=== PATIENT | male | born 1940 | race Caucasian/White ===

== ENCOUNTER 2019-05-12 14:50 | Observation (INO) ==
[2019-05-12] MEDS ORDERED: Aspirin 81 MG TAB.CHEW PO ONE (15:20)
[2019-05-12 15:22] LABS: Basophils # 0.1 K/mcL (0.0-0.2); Basophils % 0.9 %; Eosinophils # 0.1 K/mcL (0.0-0.6); Eosinophils % 1.8 %; Hematocrit 36.2 % (37.5-50.1); Immature Granulocytes % 0.4 % (0-4); Lymphocytes # 1.9 K/mcL (0.6-4.6); Lymphocytes % 24.7 %; Mean Corpuscular HGB Conc 33.1 g/dL (31.6-35.5); Mean Corpuscular Volume 93.5 fL (83.0-100.0); Mean Platelet Volume 10.3 fL (9.4-12.4); Monocytes # 0.7 K/mcL (0.0-1.3); Monocytes % 8.6 %; Neutrophils # 4.9 K/mcL (1.6-8.9); Platelet Count 195 K/mcL (140-400); Red Blood Count 3.87 M/mcL (4.19-5.50); Red Cell Distribution Width 14.4 % (11.5-14.5); Segmented Neutrophils % 63.6 %; White Blood Count 7.8 K/mcL (4.3-11.1)
[2019-05-12 15:33] LABS: Prothrombin Time 11.9 Seconds (9.4-12.1)
[2019-05-12 15:35] LABS: Activated Partial Thrombo Time 32.8 Seconds (26.0-36.0)
--- NOTE | 2019-05-12 15:40 | Emergency Department Note ---
Disposition Clinical Impression: Chest pain Qualifiers: Chest pain type: unspecified Qualified Code(s): R07.9 - Chest pain, unspecified CAD (coronary artery disease) Qualifiers: Coronary Disease-Associated Artery/Lesion type: unspecified vessel or lesion type [place] vs. 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 insulin use: unspecified fci insulin use status Diabetes mellitus complication status: with other specified complication Qualified Code(s): E11.69 - Type 2 diabetes mellitus with other specified complication Disposition: Admitted As Inpatient Time of Disposition: 16:43 Chest Pain HPI - General Chief Complaint: ED Chest Pain Stated Complaint: Chest pain Time Seen by Provider: 05/12/19 15:00 Source: patient Mode of arrival: ambulatory Limitations: no limitations Vital Signs Reviewed: Yes Nursing Notes Reviewed: Yes - History of Present Illness HPI Narrative: 79M with PMHx of DM, CAD with history of cardiac bypass, and HTN presents emergency department with complaints of intermittent chest pain that started at midnight. Patient states that he has had approximately 6 episodes of chest pain that have each lasted about 10 minutes since midnight. Patient states he had 3 episodes that woke him from sleep, as well as noted 3 episodes that happened while he was seated in his chair. He states he did not take any medications to make the chest pain go away, that it just went away on its own. He describes the pain as a substernal pressure without radiation anywhere. He says it is similar to the pain that he had prior to his cardiac bypass. He denies recent illness, fever, chills, shortness of breath, abdominal pain, nausea and vomiting. Severity scale (1-10): 1 - Related Data Home Medications Medication Instructions Recorded Confirmed Allopurinol [Zyloprim] 300 mg PO DAILY 07/24/18 05/12/19 Lisinopril 2.5 mg PO DAILY 07/24/18 05/12/19 Metoprolol [Lopressor] 25 mg PO BID 07/24/18 05/12/19 Torsemide [Demadex] 20 mg PO DAILY 07/24/18 05/12/19 amLODIPine [Norvasc] 5 mg PO DAILY 07/24/18 05/12/19 metFORMIN [Glucophage] 500 mg PO BIDWM 07/24/18 05/12/19 Aspirin [Lo-Dose Aspirin EC] 81 mg PO DAILY 05/12/19 05/12/19 Insulin Glargine,Hum.rec.anlog 18 unit SQ HS 05/12/19 05/12/19 [Basaglar Meghanaikpen U-100] Pravastatin Sodium [Pravachol] 80 mg PO DAILY 05/12/19 05/12/19 Allergies Allergy/AdvReac Type Severity Reaction Status Date / Time No Known Allergies Allergy Verified 07/24/18 14:24 All systems ED: reviewed and negative except as stated. Review of Systems: As Per HPI Constitutional: Denies: fever, chills, weakness Cardiovascular: Reports: chest pain. Denies: palpitations, dyspnea on exertion Respiratory: Denies: cough, dyspnea, wheezes Gastrointestinal: Denies: abdominal pain, nausea, vomiting Musculoskeletal: Denies: back pain, neck pain Integumentary: Denies: rash Neurological: Denies: headache Endocrine: Reports: fatigue Chest Pain PMH - Past Medical History Medical history: Reports: diabetes, hypertension Psychiatric history: Reports: no psych history - Social History Smoking Status: Never smoker Alcohol use: Reports: none Drug use: Reports: none Physical Exam - General Limitations: no limitations General appearance: alert, in no apparent distress - Head Head exam: atraumatic, normocephalic - Eye Eye exam: Present: normal appearance, EOMI - Chest Chest inspection: Present: normal inspection. Absent: tenderness, rash - Respiratory Respiratory exam: Present: normal lung sounds bilaterally. Absent: wheezes - Cardiovascular Cardiovascular exam: Present: regular rate, normal rhythm - Abdominal Exam Abdominal exam: Present: soft, Non-Tender. Absent: distention, guarding, rebound, rigidity - Extremities Exam Extremities exam: Present: normal inspection. Absent: tenderness, pedal edema - Neurological Exam Neurological exam: Present: alert, oriented X3 - Psychiatric Psychiatric exam: Present: normal affect, normal mood - Skin Skin exam: Present: warm, dry, intact Course Vital Signs Temperature 98.0 F 05/12/19 14:53 Pulse Rate 67 05/12/19 14:53 Respiratory Rate 18 05/12/19 14:53 Blood Pressure 135/71 05/12/19 14:53 O2 Sat by Pulse Oximetry 100 05/12/19 14:53 Temperature 98.0 F 05/12/19 14:53 Pulse Rate 64 05/12/19 15:34 Respiratory Rate 16 05/12/19 15:34 Blood Pressure 119/65 05/12/19 15:41 O2 Sat by Pulse Oximetry 100 05/12/19 15:34 Oxygen Delivery Oxygen Delivery Room Air Chest Pain - MDM Narrative Medical decision making narrative: Patient presents with signs and symptoms concerning for unstable angina. We will pursue a cardiac workup on the patient and plan on admission for further cardiac workup. Patient will be given aspirin, but as he is having no chest pain we will not order nitroglycerin at this time. 1604 - pts labs are at the patients baseline. CXR shows calcific aortic disease without any acute abnormalities. Pt is still denying chest pain. Hospitalist will be paged for admission for further cardiac workup. 1642 - pt has been accepted to the hospital by Dr. Larios - Medical Records Medical records reviewed: Yes I reviewed the patient's medical records. - Lab Data Lab results reviewed: Yes I reviewed the patient's lab results. Result diagrams: 05/12/19 15:05 05/12/19 15:05 Lab Results 05/12/19 05/12/19 05/12/19 Range/Units 15:05 15:05 15:05 WBC 7.8 (4.3-11.1) K/mcL RBC 3.87 L (4.19-5.50) M/mcL Hgb 12.0 L (12.9-16.9) g/dL Hct 36.2 L (37.5-50.1) % MCV 93.5 (83.0-100.0) fL MCH 31.0 (28.0-33.3) pg MCHC 33.1 (31.6-35.5) g/dL RDW 14.4 (11.5-14.5) % Plt Count 195 (140-400) K/mcL MPV 10.3 (9.4-12.4) fL Immature Gran % 0.4 (0-4) % Seg Neutrophils % 63.6 % Lymphocytes % 24.7 % Monocytes % 8.6 % Eosinophils % 1.8 % Basophils % 0.9 % Neutrophils # 4.9 (1.6-8.9) K/mcL Lymphocytes # 1.9 (0.6-4.6) K/mcL Monocytes # 0.7 (0.0-1.3) K/mcL Eosinophils # 0.1 (0.0-0.6) K/mcL Basophils # 0.1 (0.0-0.2) K/mcL PT 11.9 (9.4-12.1) Seconds INR 1.0 APTT 32.8 (26.0-36.0) Seconds Sodium 138 (136-145) mEq/L Potassium 4.5 (3.5-5.1) mEq/L Chloride 101 (98-107) mEq/L Carbon Dioxide 32 H (23-29) mEq/L BUN 24 H (8-23) mg/dL Creatinine 1.36 H (0.70-1.30) mg/dL Est GFR ( Amer) > 60 (> 60) Est GFR (Non-Af Amer) 51 L (> 60) BUN/Creatinine Ratio 18 (6-26) Glucose 177 H (70-105) mg/dL Calculated Osmolality 294 (280-300) Calcium 10.0 (8.6-10.3) mg/dL Magnesium 2.0 (1.6-2.6) mg/dL Troponin I < 0.03 (< 0.04) ng/mL - Radiology Data Radiology results reviewed: Yes I reviewed the patient's radiology results. - EKG Data EKG attestation: Yes I reviewed and interpreted this EKG. EKG results narrative: EKG obtained at Heart rate 64 bpm, [place] interval 189, QRS duration 82, QT 341, QTC 351 Sinus rhythm without any ST segment elevations or depressions. No acute T-wave abnormalities. No significant changes when compared to previous EKG dated 12/13/2013. Heart Score - Score History: Slightly Suspicious EKG: Normal Age: Greater than 65 Risk Factors: Equal/Greater than 3 risk factor or history of atherosclerotic disease Troponin: Less than normal limit HEART Score Total: 4 Attestation Statement - Attestation Attestation: I, Mk Tillman, examined this patient and my medical decision-making was reviewed with the ROUTE RELIEF DRIVER/PA/Advanced Practice Nurse/Resident Physician. I agree with the documented findings, disposition and treatment plan as described except to the extent set forth below. 79-year-old male presents emergency Department with concerns of chest pain. Patient reports pain is described as a aching pressure in his central chest that does not radiate. Patient denies associated syncopal event. He states it does feel similar to his previous pain prior to his cardiac bypass. Patient denies recent fever, chills, vomiting, syncope, abdominal pain, diarrhea, hematochezia, melena. He does state that he does not have significantly worsened shortness of breath compared to the past. Initial troponin negative.I reviewed the EKG with the resident and agree with the interpretation. Patient will be admitted to the hospitalist for further care and evaluation of his chest pain
[2019-05-12 15:41] LABS: BUN/Creatinine Ratio 18 (6-26); Blood Urea Nitrogen 24 mg/dL (8-23); Carbon Dioxide 32 mEq/L (23-29); Chloride 101 mEq/L (98-107); Glucose 177 mg/dL (70-105); Osmolality,Calculated 294 (280-300); Potassium 4.5 mEq/L (3.5-5.1); Sodium 138 mEq/L (136-145); Troponin I < 0.03 ng/mL (< 0.04); eGFR For African Americans > 60 (> 60); eGFR For Non-African Americans 51 (> 60)
[2019-05-12] MEDS ORDERED: Naloxone 0.4 MG/ML INJ IVP PRN (17:38)
--- NOTE | 2019-05-12 17:42 | Internal Med History&Physical ---
Date of Encounter: 05/12/19 Time of Encounter: 17:37 Internal Medicine - H&P: HPI Chief complaint: chest pain Admitted From: Home Plans for Post Hospital Care: Home History of present illness: Mr. Torrez is a 79 year old male past medical history of diabetes, CKD3, hypertension, gout, coronary artery disease status post bypass about 16 years ago came in with complain of chest pain starting yesterday night. Patient re ported multiple episodes of chest pain lasting about 10 minutes. Initially he was woke woken up by chest pain from sleep yesterday. He did not do anything to make it better and the chest pain subsided itself. It was about 6/10 in intensity and nonradiating. Not associated nausea vomiting sweating lightheadedness or palpitation. He reported stress test or LHC was done at [facility] about 8-10 years ago. Has not followed up with cardiology since last 5-6 years. Denied any abdominal pain but has chronic back pain. Denied any cough or shortness of breath. Denies any leg swelling. Patient was evaluated in the ER and admission was requested for ACS workup. He received 325 aspirin. During my interview patient was without any chest pain. Chest x-ray was without any acute pulmonary disease, showed calcified atherosclerotic aorta. Patient denied any difficulty breathing. Past Med Surg Social Fam HX - Past Medical History Medical history: diabetes, hypertension Psychiatric history: no psych history - Past Surgical History Additional surgical history: rectal fistula,. cholecystectomy. Rt knee surgery - Social History Smoking Status: Never smoker Smokeless Tobacco Status: No Alcohol use: none Drug use: none - Additional Family History Additional family history: Denies any history of cancer in family Internal Medicine - H&P: Meds Allopurinol [Zyloprim] 300 mg PO DAILY 07/24/18 [History] Lisinopril 2.5 mg PO DAILY 07/24/18 [History] Metoprolol [Lopressor] 25 mg PO BID 07/24/18 [History] Torsemide [Demadex] 20 mg PO DAILY 07/24/18 [History] amLODIPine [Norvasc] 5 mg PO DAILY 07/24/18 [History] metFORMIN [Glucophage] 500 mg PO BIDWM 07/24/18 [History] Aspirin [Lo-Dose Aspirin EC] 81 mg PO DAILY 05/12/19 [History] Insulin Glargine,Hum.rec.anlog [Basaglar Kwikpen U-100] 18 unit SQ HS 05/12/19 [History] Pravastatin Sodium [Pravachol] 80 mg PO DAILY 05/12/19 [History] Allergy/AdvReac Type Severity Reaction Status Date / Time No Known Allergies Allergy Verified 07/24/18 14:24 All Systems PM: A 10-system review of systems was performed and is negative for pertinent findings except as documented above in the HPI. - Constitutional Vitals: Temp Pulse Resp BP Pulse Ox 98.0 F 63 16 117/59 100 05/12/19 14:53 05/12/19 17:09 05/12/19 17:09 05/12/19 17:09 05/12/19 17:09 Exam: Constitutional: Vitals as noted. Conversant. No Apparent Distress. Well groomed. No obvious deformities. Eyes : Sclera white, conjunctiva clear, no lid lag, PEARLA. ENT : Grossly normal hearing. Oropharyngeal exam unremarkable. Moist mucus mem branes. No JVD, no cervical lymphadenopathy. no thyromegaly or mass. Respiratory : Clear to auscultation bilaterally. No accessory muscle use, rales, rhonchi or wheezes Cardiovascular : RRR, +S1, +S2. no murmur, gallop, rubs. No chest wall tenderness GI/Abdominal : Soft, Non-tender, Non-distended, normal bowel sounds, soft, no peritoneal signs. no orgenomegaly or mass appreciated. no hernia. Musculoskeletal: no deformity noted. no edema or cyanosis. warm extremities, pulses palpable and symmetrical in UE/LE. no calf tenderness. Neurological: AO X3, CN II-XII grossly intact, grossly normal motor and sensory exam. Skin: No skin rash, lesions or ulcers noted. Pych: Good insight and judgement. Intact memory. AOx3. Internal Med - H&P Results - Labs CBC & Chem 7: 05/12/19 15:05 05/12/19 15:05 Labs: Short CBC 05/12/19 Range/Units 15:05 WBC 7.8 (4.3-11.1) K/mcL Hgb 12.0 L (12.9-16.9) g/dL Hct 36.2 L (37.5-50.1) % Plt Count 195 (140-400) K/mcL Neutrophils # 4.9 (1.6-8.9) K/mcL BMP 05/12/19 15:05 Sodium 138 Potassium 4.5 Chloride 101 Carbon Dioxide 32 H BUN 24 H Creatinine 1.36 H Glucose 177 H Calcium 10.0 Cardiac Enzymes 05/12/19 Range/Units 15:05 Troponin I < 0.03 (< 0.04) ng/mL - EKG Data -: EKG Interpreted by Myself EKG shows normal: sinus rhythm - Impressions ITS Impressions Chest X-Ray 05/12/19 14:59 IMPRESSION: No acute pulmonary disease. Calcific atherosclerotic disease aorta. D/ / Shiv Callaway / Shiv Callaway Interpreting Provider: Shiv Callaway - Assessment and Plan (1) Chest pain Current Visit: Yes Status: Acute Assessment and plan: Patient's chest pain is atypical in nature. Troponin unremarkable and EKG without any acute ischemic changes We will trend troponin. If negative will plan for stress test. We will obtain echocardiogram. No echo available to review from past. NPO after midnight. Qualifiers: Chest pain type: unspecified Qualified Code(s): R07.9 - Chest pain, unspecified (2) HTN (hypertension) Current Visit: Yes Status: Acute Assessment and plan: Continue home antihypertensives. Blood pressure control Qualifiers: Hypertension type: essential hypertension Qualified Code(s): I10 - Essential (primary) hypertension (3) Gout Current Visit: Yes Status: Acute Assessment and plan: Continue home allopurinol Qualifiers: Gout site: unspecified site Gout etiology: unspecified cause Chronicity: chronic Presence of tophus: without tophus Qualified Code(s): M1A.9XX0 - Chronic gout, unspecified, without tophus (tophi) (4) CAD (coronary artery disease) Current Visit: Yes Status: Acute Assessment and plan: Continue home aspirin , again and metoprolol Qualifiers: Coronary Disease-Associated Artery/Lesion type: unspecified vessel or lesion type [place] vs. transplanted heart: [place] heart Associated angina: with unstable angina Qualified Code(s): I25.110 - Atherosclerotic heart disease of [place] coronary artery with unstable angina pectoris (5) Diabetes mellitus Current Visit: Yes Status: Acute Assessment and plan: Hold home oral hypoglycemics. Keep patient on sliding scale insulin and Accu-Cheks for now. Qualifiers: Diabetes mellitus type: type 2 Diabetes mellitus penitentiary insulin use: unspecified exterminator insulin use status Diabetes mellitus complication status: with other specified complication Qualified Code(s): E11.69 - Type 2 diabetes mellitus with other specified complication - Time Spent With Patient Total time spent is greater than 50% in coordination of care (as documented) at patient's floor/unit and/or counseling patient:
[2019-05-12] MEDS ORDERED: Insulin LISPRO 300 UNITS/3 ML VIAL SQ SCH (21:00)
[2019-05-13 03:27] LABS: BUN/Creatinine Ratio 18 (6-26); Blood Urea Nitrogen 26 mg/dL (8-23); Calcium 10.1 mg/dL (8.6-10.3); Carbon Dioxide 29 mEq/L (23-29); Chloride 103 mEq/L (98-107); Glucose 171 mg/dL (70-105); Osmolality,Calculated 293 (280-300); Potassium 4.5 mEq/L (3.5-5.1); Sodium 137 mEq/L (136-145); Troponin I < 0.03 ng/mL (< 0.04); eGFR For African Americans 59 (> 60); eGFR For Non-African Americans 49 (> 60)
[2019-05-13] MEDS ORDERED: Regadenoson 0.4 MG/5 ML SYRINGE IVP ONE (05:55)
[2019-05-13] MEDS ORDERED: Insulin LISPRO 300 UNITS/3 ML VIAL SQ SCH (07:30)
[2019-05-13] MEDS ORDERED: amLODIPine 5 MG TABLET PO SCH (09:00)
[2019-05-13] MEDS ORDERED: Torsemide 20 MG TABLET PO SCH (09:00)
[2019-05-13] MEDS ORDERED: Aspirin Enteric Coated 81 MG Tablet PO SCH (09:00)
[2019-05-13 12:54] VITALS: BP 120/84
--- NOTE | 2019-05-13 14:07 | Discharge Summary ---
- NOTES TO OUTPATIENT PROVIDER Notes to Outpatient Provider: Patient will follow with cardiology as outpatient. Date of Encounter: 05/13/19 Time of Encounter: 14:04 - Discharge Diagnosis (1) Chest pain Priority: Primary Status: Acute Qualifiers: Chest pain type: unspecified Qualified Code(s): R07.9 - Chest pain, unspecified (2) HTN (hypertension) Priority: Secondary Status: Acute Qualifiers: Hypertension type: essential hypertension Qualified Code(s): I10 - Essential (primary) hypertension (3) Gout Priority: Secondary Status: Acute Qualifiers: Gout site: unspecified site Gout etiology: unspecified cause Chronicity: chronic Presence of tophus: without tophus Qualified Code(s): M1A.9XX0 - Chronic gout, unspecified, without tophus (tophi) (4) CAD (coronary artery disease) Priority: Secondary Status: Acute Qualifiers: Coronary Disease-Associated Artery/Lesion type: unspecified vessel or lesion type [place] vs. 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 Torrez is a 79 year old male past medical history of diabetes, hypertension, gout, CAD, security stage III came in with complain of chest pain which was atypical in nature. EKG was without any ischemic signs. Troponin were negative 3. Renal function was at baseline. Patient had nuclear stress test done which was unremarkable. Did not have any further episodes chest pain. Suspect likely musculoskeletal in nature. Patient's echocardiogram showed EF of 60%, moderate LV diastolic dysfunction, normal wall motion. Patient is stable to be discharged home to follow with PCP and cardiology in 1-2 weeks. Discharge discussed with: patient, family, nurse - Time Spent with Patient Total time spent providing and/or coordinating discharge services: Time spent: Greater than 30 minutes (40) - Discharge Medications Prescriptions: Continued metFORMIN [Glucophage] 500 mg PO BIDWM Torsemide [Demadex] 20 mg PO DAILY Metoprolol [Lopressor] 25 mg PO BID amLODIPine [Norvasc] 5 mg PO DAILY Lisinopril 2.5 mg PO DAILY Allopurinol [Zyloprim] 300 mg PO DAILY Aspirin [Lo-Dose Aspirin EC] 81 mg PO DAILY Insulin Glargine,Hum.rec.anlog [Basaglar Kwikpen U-100] 18 unit SQ HS Pravastatin Sodium [Pravachol] 80 mg PO DAILY Home Medications: Allopurinol [Zyloprim] 300 mg PO DAILY 07/24/18 [History] Lisinopril 2.5 mg PO DAILY 07/24/18 [History] Metoprolol [Lopressor] 25 mg PO BID 07/24/18 [History] Torsemide [Demadex] 20 mg PO DAILY 07/24/18 [History] amLODIPine [Norvasc] 5 mg PO DAILY 07/24/18 [History] metFORMIN [Glucophage] 500 mg PO BIDWM 07/24/18 [History] Aspirin [Lo-Dose Aspirin EC] 81 mg PO DAILY 05/12/19 [History] Insulin Glargine,Hum.rec.anlog [Basaglar Kwikpen U-100] 18 unit SQ HS 05/12/19 [History] Pravastatin Sodium [Pravachol] 80 mg PO DAILY 05/12/19 [History] Allergies/Adverse Reactions: Allergy/AdvReac Type Severity Reaction Status Date / Time No Known Allergies Allergy Verified 07/24/18 14:24 Date of admission: 05/12/19 16:56 Primary care physician: Julio Barrientos DO Discharging clinician: Shelia Valverde Constitutional Vitals: Temp Pulse Resp BP Pulse Ox 97.6 F 72 16 120/84 98 05/13/19 12:52 05/13/19 12:52 05/13/19 12:52 05/13/19 12:52 05/13/19 12:52 Exam: Constitutional: Vitals as noted. Conversant. No Apparent Distress. Respiratory : Clear to auscultation bilaterally. No accessory muscle use, rales, rhonchi or wheezes Cardiovascular : RRR, +S1, +S2. no murmur, gallop, rubs. No chest wall tenderness GI/Abdominal : Soft, Non-tender, Non-distended, normal bowel sounds, no peritoneal signs. no orgenomegaly or mass appreciated. no hernia. Musculoskeletal: no deformity noted. no edema, no calf tenderness. Neurological: AO X3, CN II-XII grossly intact, grossly normal motor and sensory exam. Skin: No skin rash, lesions or ulcers noted. - Patient Status Disposition: Home, Self-Care Condition: Fair - Discharge Instructions Follow Up With: Julio Barrientos DO [Primary Care Provider] -
--- NOTE | 2019-05-17 11:42 | Electrocardiograph Report ---
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
== END 2019-05-13 15:52 | disposition home or self-care (01) ==
LOC: EMEROOARM 14:50 → 3BNU 14:50
PROVIDERS: ADMIT Internal Medicine; ATTEND Internal Medicine